=== PATIENT | male | born 1945 | race Caucasian/White ===

== ENCOUNTER 2021-08-04 08:45 | Emergency (ER) | payer OTHER ==
[~2021-08-04 08:45] MED LIST: MULTIVITAMINS1 EAC1 PO; NEURONTIN 400400 MG PO; PROBIOTIC1 EAC3 PO; PROTONIX40 MG PO
[2021-08-04 09:44] LABS: HEMOGLOBIN 16.9 gm/dl (14.0-17.5); RED BLOOD COUNT 4.88 M/UL (4.20-5.50); WHITE BLOOD COUNT 19.2 K/UL (4.5-11.0)
[2021-08-04] MEDS ORDERED: ZOFRAN ODT 4 MG4 MG PO (14:37)
== END 2021-08-04 14:50 | disposition home or self-care (01) ==
LOC: ER1 08:45
PROVIDERS: Family Medicine
DX: R06.6 Hiccough (principal); R11.2 Nausea with vomiting, unspecified; I10 Essential (primary) hypertension; N18.9 Chronic kidney disease, unspecified; D72.829 Elevated white blood cell count, unspecified; R11.10 Vomiting, unspecified; E78.5 Hyperlipidemia, unspecified; Z79.899 Other long term (current) drug therapy; F17.200 Nicotine dependence, unspecified, uncomplicated
CPT/HCPCS: 80053; 81001; 83690; 85025; 99284

== ENCOUNTER → 2021-08-10 | Day surgery (SDC) | payer OTHER ==
[~2021-08-10] MED LIST changes: +DIFLUCAN100 MG PO; +GABAPENTIN600 MG PO; +HYZAAR 50-12.51 EACH PO; +LIPITOR TAB 2020 MG PO; +LOSARTAN POTASS50 MG PO; +NEXIUM40 MG PO; +ZOFRAN ODT 4 MG4 MG PO
== END | disposition home or self-care (01) ==
LOC: OR 07:00
DX: B37.81 Candidal esophagitis (principal); K29.70 Gastritis, unspecified, without bleeding; K44.9 Diaphragmatic hernia without obstruction or gangrene; K21.00 Gastro-esophageal reflux disease with esophagitis, without bleeding; I12.9 Hypertensive chronic kidney disease with stage 1 through stage 4 chronic kidney disease, or unspecified chronic kidney disease; N18.30 Chronic kidney disease, stage 3 unspecified; E78.5 Hyperlipidemia, unspecified; E66.3 Overweight; F17.290 Nicotine dependence, other tobacco product, uncomplicated; Z68.26 Body mass index [BMI] 26.0-26.9, adult; Z79.899 Other long term (current) drug therapy; Z20.822 Contact with and (suspected) exposure to COVID-19
CPT/HCPCS: J2704; J7040

== ENCOUNTER 2021-10-28 09:09 | Emergency (ER) | payer OTHER ==
[2021-10-28] MEDS ORDERED: ZOFRAN ODT 4 MG4 MG PO (13:46)
[2021-10-28] MEDS ORDERED: PERCOCET 5/325 T1 EA PO (13:46)
== END 2021-10-28 14:10 | disposition home or self-care (01) ==
LOC: ER1 09:09
DX: K46.9 Unspecified abdominal hernia without obstruction or gangrene (principal); M54.6 Pain in thoracic spine; E78.5 Hyperlipidemia, unspecified; I10 Essential (primary) hypertension
CPT/HCPCS: 71250; 99283

== ENCOUNTER → 2022-01-18 | Outpatient (CLI) | payer OTHER ==
[~2022-01-18] MED LIST changes: +PERCOCET 5/325 T1 EA PO
== END ==
LOC: KOH-I 01-12 09:45
DX: M96.1 Postlaminectomy syndrome, not elsewhere classified (principal); M47.816 Spondylosis without myelopathy or radiculopathy, lumbar region; M51.26 Other intervertebral disc displacement, lumbar region; M48.061 Spinal stenosis, lumbar region without neurogenic claudication; M51.27 Other intervertebral disc displacement, lumbosacral region; M47.817 Spondylosis without myelopathy or radiculopathy, lumbosacral region; M48.07 Spinal stenosis, lumbosacral region
CPT/HCPCS: 72148

== ENCOUNTER → 2022-02-08 | Outpatient (CLI) | payer OTHER | LOC: LAB 14:46 | DX: M96.1 Postlaminectomy syndrome, not elsewhere classified (principal) | CPT/HCPCS: 87081 ==